=== PATIENT | female | born 1985 | race Caucasian/White ===

== ENCOUNTER 2016-11-09 10:04 | Emergency (ER) | payer MEDICAID ==
[2016-11-09 10:12] VITALS: BP 123/72
--- NOTE | 2016-11-09 10:15 | ER Document Report ---
ED Medical Screen (RME) - General Stated Complaint: FOOT PAIN Mode of Arrival: Ambulatory Information source: Patient Notes: She presents to the emergency department with complaints of right plantar foot pain for one month. She is on her feet all day long. Denies trauma. I have greeted and performed a rapid initial assessment of this patient. A comprehensive ED assessment and evaluation of the patient, analysis of test results and completion of the medical decision making process will be conducted by additional ED providers. TRAVEL OUTSIDE OF THE [place] IN LAST 30 DAYS: No Past Medical History Past Surgical History: Reports: Hx Tonsillectomy - Immunizations Hx Diphtheria, Pertussis, Tetanus Vaccination: No Physical Exam - Vital signs Vitals: Temp Pulse Resp BP Pulse Ox 98.0 F 80 16 123/72 99 11/09/16 10:08 11/09/16 10:08 11/09/16 10:08 11/09/16 10:08 11/09/16 10:08 Course - Vital Signs Vital signs: Temp Pulse Resp BP Pulse Ox 98.0 F 80 16 123/72 99 11/09/16 10:08 11/09/16 10:08 11/09/16 10:08 11/09/16 10:08 11/09/16 10:08
== END 2016-11-09 11:25 | disposition left against medical advice (07) ==
LOC: ER 10:04
DX: M79.671 Pain in right foot (principal)
CPT/HCPCS: 99281

== ENCOUNTER → 2018-05-20 | Outpatient (CLI) | payer MEDICAID ==
--- NOTE | 2018-05-21 09:00 | RADIOLOGY REPORT (SQ) ---
EXAM DESCRIPTION: MRI RT LOWER JOINT WITHOUT COMPLETED DATE/TIME: 05/20/2018 5:25 pm REASON FOR STUDY: PAIN IN RIGHT ANKLE AND JOINTS OF RIGHT M25.571 PAIN IN RIGHT ANKLE AND JOINTS OF RIGHT FOOT COMPARISON: None. TECHNIQUE: Right ankle images acquired and stored on PACS. Multiplanar images include fat sensitive sequences as T1, fluid sensitive sequences as FST2/STIR, cartilage sensitive sequences as FSPD, and g radient echo sequences. LIMITATIONS: None. FINDINGS: BONE MARROW: Subchondral edema midline tibial plafond and along the posteromedial margin o f the talus. EFFUSIONS: Small ankle and subtalar joint effusions. No definite loose bodies are identified. OSSEOUS ARTICULATIONS: Intact. TALAR DOME AND TIBIAL PLAFOND: Intact cartilage. No osteochondral defect. ACHILLES TENDON: Intact without partial or full-thickness tear. No adjacent bursal fluid or edema. TIBIALIS ANTERIOR TENDON: Intact without edema at the 1st MT attachment. TIBIALIS POSTERIOR TENDON: Normal morphology and no edema at the navicular attachment. No tendon ivey th fluid. FLEXOR HALLUCIS LONGUS AND FLEXOR DIGITORUM TENDONS: Normal morphology and no tendon sheath fluid. No edema of the os trigonum. PERONEUS LONGUS AND BREVIS TENDON: Chevron sign in the peroneus brevis tendon. Mildly increased flui d in the tendon sheath. ATFL, CFL, PTFL: The ATFL is torn. The CFL is attenuated but intact. Tibiofibular ligaments intact. DELTOID LIGAMENT: Visualized components intact. TARSAL TUNNEL: No masses. No muscle atrophy. SINUS TARSI: No fluid. No reactive marrow edema or erosions. PLANTAR FASCIA: No signal alteration or tear. ADJACENT SOFT TISSUES: No masses. OTHER: No other significant finding. IMPRESSION: 1. Torn ATFL. 2. Split tear of the peroneus brevis tendon. 3. Mild subchondral edema in the tibial plafond and medial margin of the talus. TECHNICAL DOCUMENTATION: JOB ID: [id number] [employer]- All Rights Reserved Reading location - IP/workstation name: [email or web address]
== END ==
LOC: RAD 16:05
PROVIDERS: ATTEND Orthopaedic Surgery Sports Medicine
DX: M25.571 Pain in right ankle and joints of right foot (principal); S86.311A Strain of muscle(s) and tendon(s) of peroneal muscle group at lower leg level, right leg, initial encounter; X58.XXXA Exposure to other specified factors, initial encounter
CPT/HCPCS: 81025

== ENCOUNTER 2020-02-25 18:03 | Inpatient (IN) | payer MEDICAID ==
[2020-02-25] MEDS ORDERED: RINGERS SOLUTION,LACTATED 1,000 ML IV ONE (18:20)
[2020-02-25] MEDS ORDERED: OXYTOCIN/0.9 % SODIUM CHLORIDE 30 UNIT/500 ML RTUINJ IV PRN (18:20)
[2020-02-25] MEDS ORDERED: RINGERS SOLUTION,LACTATED 300 ML IV ONE (18:20)
[2020-02-25] MEDS ORDERED: MAG HYDROX/AL HYDROX/SIMETH SUSP 30 ML UDCUP PO PRN (18:20)
[2020-02-25] MEDS ORDERED: ZOLPIDEM TARTRATE 5 MG TABLET PO PRN (18:20)
[2020-02-25] MEDS ORDERED: RINGERS SOLUTION,LACTATED 1,000 ML IV PRN ×2 (18:20)
[2020-02-25] MEDS ORDERED: ACETAMINOPHEN 325 MG TABLET PO PRN (18:20)
[2020-02-25] MEDS ORDERED: DINOPROSTONE 10 MG VAGINAL INSERT.SR PV ONE (18:20)
[2020-02-25] MEDS ORDERED: DINOPROSTONE 10 MG VAGINAL INSERT.SR ONE (18:47)
--- NOTE | 2020-02-25 18:59 | Admission Physical ---
Datetime Report Generated by CPN: 02/25/2020 18:58 CURRENT ADMISSION Chief Complaint: Scheduled Induction of Labor Indication for Induction: Not Applicable Admit Impression : Term, Intrauterine ; No Active Labor; Intact Membranes; Induction of Labor Admit Plan: Admit to Unit; Initiate Labor Induction Protocol ALLERGIES Medication Allergies: Yes Medication Allergies: Penicillins (02/25/2020); amoxicillin (02/25/2020); meperidine (02/25/2020) Latex: No Latex Allergies OBSTETRICAL HISTORY EDC: 02/25/2020 00:00 : 2 Para: 1 Term: 1 : 1 SAB: 1 IAB: 1 Ectopic: 0 Livin Cesareans: 0 VBACs: 0 Multiple Births: 0 Gestational Diabetes: No Rh Sensitization: No Incompetent Cervix: No ISELA: No Infertility: No ART Treatment: No Uterine Anomaly: No IUGR: No Hx Previous C/S: No Macrosomia: No Hx Loss/Stillborn: No PIH: No Hx : No Placenta Previa/Abruption: No Depression/PP Depression: No PTL/PROM: No Post Hemorrhage: No Current Procedures: Ultrasound Obstetrical History Comments: G1- 41wks viable baby boy G2- Current SEE RECORDS Alcohol: No Marijuana : No Cocaine: No Other Illicit Drugs: No Cigarettes: Never Smoker. [id number] MEDICAL HISTORY Diabetes: No Blood Transfusion: No Pulmonary Disease (Asthma, TB): No Breast Disease: No Hypertension: No Police Captain Senior Surgery: No Heart Disease: No Hosp/Surgery: Yes Autoimmune Disorder: No Anesthetic Complications: No Kidney Disease: No Abnormal Pap Smear: No Neuro/Epilepsy: No Psychiatric Disorders: No Other Medical Diseases: No Hepatitis/Liver Disease: No Significant Family History: No Varicosities/Phlebitis: No Trauma/Violence : No Thyroid Dysfunction: No INFECTIOUS HISTORY Gonorrhea: No Genital Herpes: No Chlamydia: No Tuberculosis: No Syphilis: No Hepatitis: No HIV/AIDS Exposure: No Rash or Viral Illness: No HPV: No PHYSICAL EXAM General: Normal HEENT: Normal Neurologic: Normal Thyroid: Normal Heart: Normal Lungs: Normal Breast: Normal Back: Normal Abdomen: Normal Genitourinary Exam: Normal Extremities: Normal DTRs: Normal Pelvic Type: Adequate Vital Signs: Reviewed; Within Normal Limits VAGINAL EXAM Dilatation: 1 Effacement: 50 Station: -2 Contraction Comments: no regular MEMBRANES Membranes: Intact FETUS A EGA: 40.0 Monitoring: External US FHR- Baseline: 145 Variability: Moderate 6-25bpm Accelerations: 15X15 Decelerations: None FHR Category: Category I Presentation: Vertex Admit Comment: 35 yo at 40.0 wks EGA for IOL at 41.1 wks EGA for post dates -Admit LDR for scheduled IOL -Ice chips only when in active labor. Start IVFs : LR at 125 cc/hr now -CEFM and [place] -GBS negative, A positive blood type, G/C negative, RI, varicella immune -Cervidil 10mg PV this PM -Hx of one prior , anticipate PLANS FOR LABOR AND DELIVERY Labor and Delivery: None Pain Management: None Feeding Preference: Formula Benefit of Breast Feed Discussed: Yes Circumcision: Yes INFORMED CONSENT Informed Consent Obtained: Vaginal Delivery; Section Delivery; Induction of Labor; Risks, Benefits and Alternatives Discussed Signature: with User ID: [email or web address] : with User ID: [email or web address]
[2020-02-25] MEDS ORDERED: MISOPROSTOL 0.1 MG TABLET ONE ×2 (19:16→19:26)
[2020-02-25] MEDS ORDERED: MISOPROSTOL 0.1 MG TABLET PV ONE (19:18)
[2020-02-25 19:22] LABS: ABSOLUTE EOSINOPHILS # (AUTO) 0.1 10^3/uL (0.0-0.6); ABSOLUTE LYMPHOCYTES (AUTO) 2.4 10^3/uL (0.5-4.7); ABSOLUTE MONOCYTES (AUTO) 0.8 10^3/uL (0.1-1.4); ABSOLUTE NEUT (AUTO) 8.2 10^3/uL (1.7-8.2); BASOPHILS % (AUTO) 0.3 % (0-2); EOSINOPHILS % (AUTO) 0.8 % (0-6); HEMATOCRIT 35.3 % (36.0-47.0); HEMOGLOBIN 12.6 g/dL (12.0-15.5); LYMPHOCYTES % (AUTO) 20.7 % (13-45); MEAN CORPUSCULAR HGB CONC 35.5 g/dL (32.0-36.0); MEAN CORPUSCULAR VOLUME 90 fl (80-97); MONOCYTES % (AUTO) 6.6 % (3-13); PLATELET COUNT 280 10^3/uL (150-450); RED BLOOD COUNT 3.92 10^6/uL (3.72-5.28); RED CELL DISTRIBUTION WIDTH 12.9 % (11.5-14.0); SEGMENTED NEUTROPHILS % (AUTO) 71.6 % (42-78); TOTAL CELLS COUNTED % (AUTO) 100 %; WHITE BLOOD COUNT 11.5 10^3/uL (4.0-10.5)
[2020-02-25 19:22] LABS: URINE AMPHETAMINES SCREEN NEGATIVE; URINE BARBITURATES SCREEN NEGATIVE; URINE BENZODIAZEPINES SCREEN NEGATIVE; URINE COCAINE SCREEN NEGATIVE; URINE MARIJUANA (THC) SCREEN NEGATIVE; URINE METHADONE SCREEN NEGATIVE; URINE PHENCYCLIDINE SCREEN NEGATIVE
[2020-02-26] MEDS ORDERED: OXYTOCIN/0.9 % SODIUM CHLORIDE 30 UNIT/500 ML RTUINJ ONE (00:32)
[2020-02-26] MEDS ORDERED: LIDOCAINE 1% INJ-PF (10 MG/ML) 30 ML SDV ONE (02:56)
[2020-02-26] MEDS ORDERED: MISOPROSTOL 0.2 MG TABLET ONE (02:56)
[2020-02-26] MEDS ORDERED: OXYTOCIN 10 UNIT/ML VIAL ONE (02:56)
[2020-02-26] MEDS ORDERED: PROMETHAZINE HCL INJ 25 MG/1 ML VIAL IV ONE (09:16)
[2020-02-26] MEDS ORDERED: NALBUPHINE HCL INJ 10 MG/1 ML AMPULE ONE (09:16)
[2020-02-26] MEDS ORDERED: NALBUPHINE HCL INJ 10 MG/1 ML AMPULE IV ONE (09:16)
[2020-02-26] MEDS ORDERED: PROMETHAZINE HCL INJ 25 MG/1 ML VIAL ONE (09:16)
[2020-02-26] MEDS ORDERED: BENZOCAINE/MENTHOL AEROSOL SPRAY 56 ML TOP PRN (12:34)
[2020-02-26] MEDS ORDERED: NA PHOS,M-B/NA PHOS,DI-BA (ADULT) 133 ML ENEMA PR PRN (12:34)
[2020-02-26] MEDS ORDERED: PROMETHAZINE HCL 25 MG TABLET PO PRN (12:34)
[2020-02-26] MEDS ORDERED: MEASLES,MUMPS&RUBELLA VACC/PF 0.5 ML VIAL SUBCUT PRN (12:34)
[2020-02-26] MEDS ORDERED: DIPHENHYDRAMINE HCL 25 MG CAPSULE PO PRN (12:34)
[2020-02-26] MEDS ORDERED: PROMETHAZINE HCL INJ 25 MG/1 ML VIAL IV PRN (12:34)
[2020-02-26] MEDS ORDERED: DIBUCAINE 1% OINTMENT 28 GM TP PRN (12:34)
[2020-02-26] MEDS ORDERED: GLYCERIN/WITCH HAZEL LEAF 1 EACH MED..WIPE TP PRN (12:34)
[2020-02-26] MEDS ORDERED: PROMETHAZINE HCL 25 MG SUPP.RECT PR PRN (12:34)
[2020-02-26] MEDS ORDERED: ACETAMINOPHEN 325 MG TABLET PO PRN (12:34)
[2020-02-26] MEDS ORDERED: PSEUDOEPHEDRINE HCL 30 MG TABLET PO PRN (12:34)
[2020-02-26] MEDS ORDERED: DIPH/PERTUSS(ACELL)/TETANUS VAC/PF 0.5 ML SYR (>=10YO) IM PRN (12:34)
[2020-02-26] MEDS ORDERED: MAGNESIUM HYDROXIDE SUSP 30 ML UDCUP PO PRN (12:34)
[2020-02-26] MEDS ORDERED: OXYTOCIN/0.9 % SODIUM CHLORIDE 30 UNIT/500 ML RTUINJ IV PRN (12:34)
--- NOTE | 2020-02-26 13:24 | Warning Signs in Babies ---
VOD Warning Signs Datetime Report Generated by [facility]: 02/26/2020 13:23 VOD#[id number] -Warning Signs in Babies: Needs to be viewed. (02/25/2020 18:12:Nina Begum RN)
--- NOTE | 2020-02-26 14:00 | Delivery Summary ---
Del Sum A-C Datetime Report Generated by CPN: 02/26/2020 14:00 DELIVERY PERSONNEL DELIVERY PERSONNEL: [id number] Delivery Doctor:: Rachel Chavez CNM Nurse Hris Manager Certified:: Rachel Chavez CNM Labor and Delivery Nurse:: Nina Begum RN Nursery Nurse:: Rhonda Perry RN Flight Line Service Attendant/FRONT LINE LEADER: Corinne Dc CNA II MATERNAL INFORMATION Delivery Anesthesia: None Medications After Delivery: Pitocin 30 Units in 500ml NS/D5W Delivery QBL: 150 Maternal Complications: None Provider Comments: pt quickly progressed to c/c/+1 with urge to push, began pushing and able to deliver the head at which point patient stopped pushing. head rotated from DOMENICA to FLORENCIO then patient began pushing again and able to deliver anterior shoulder then quickly delivered the rest of the body. Baby with vigorous respiratory effort and cry with tactile stimulation. Baby placed on maternal abdomen, cord allowed to stop pulsating then clamped x2 and cut by FOB (cord blood collected,3vc noted). Placenta delivered spontaneously intact with central insertion. Fundus firm @ u-2, bleeding stable. Vaginal and perineal inspection revealed no lacerations. Mother and baby remain skin to skin and bonding at this time. LABOR SUMMARY EDC: 02/25/2020 00:00 No. Babies in Womb: 1 Attempted: No Labor Anesthesia: None LABOR INFORMATION Reason for Induction: Post Dates Onset of Labor: 02/26/2020 05:32 Complete Dilatation: 02/26/2020 11:34 Cervical Ripening Agents: Cytotec @ Oxytocin: Induction Group B Beta Strep: NEGATIVE Antibiotics # of Doses: 0 Antibiotics Time of Last Dose: N/A Steroids Given: None Reason Steroids Not Administered: Not Applicable MEMBRANES Membranes Rupture Method: Artificial Rupture of Membranes: 02/26/2020 08:40 Length of Rupture (hr): 3.50 Amniotic Fluid Color: Clear Amniotic Fluid Amount: Moderate Amniotic Fluid Odor: None STAGES OF LABOR Stage 1 hr: 6 Stage 1 min: 2 Stage 2 hr: 0 Stage 2 min: 36 Stage 3 hr: 0 Stage 3 min: 12 Total Time in Labor hr: 6 Total Time in Labor min: 50 VAGINAL DELIVERY Episiotomy: None Laceration #1: None Laceration Extension #1: N/A Laceration Repair: Not Applicable Sponge Count Correct: Yes Sharps Count Correct: N/A CSECTION DELIVERY Primary Indication: N/A Secondary Indication: N/A CSection Incidence: N/A Labor: N/A Elective: N/A CSection Incision: N/A BABY A INFORMATION Delivery Date/Time: 02/26/2020 12:10 Method of Delivery: Vaginal Nurse Controlled Delivery: No Born in Route : No : N/A Forceps: N/A Vacuum Extraction: N/A Shoulder Dystocia : No PRESENTATION/POSITION BABY A Presentation: Cephalic Cephalic Presentation: Vertex Vertex Position: Right Occipital Anterior Breech Presentation: N/A PLACENTA INFORMATION BABY A Placenta Delivery Time : 02/26/2020 12:22 Placenta Method of Delivery: Spontaneous Placenta Status: Delivered SCORES BABY A Heart Rate 1 min: >100 bpm Resp Effort 1 min: Good Cry Reflex Irritability 1 min: Cough or Sneeze or Pulls Away Muscle Tone 1 min: Active Motion Color 1 min: Blue/Pale Resuscitation Effort 1 min: Tactile Stimulation SCORE 1 MIN: 8 Heart Rate 5 min: >100 bpm Resp Effort 5 min: Good Cry Reflex Irritability 5 min: Cough or Sneeze or Pulls Away Muscle Tone 5 min: Active Motion Color 5 min: Body [place], Extremities Blue Resuscitation Effort 5 min: N/A SCORE 5 MIN: 9 Resuscitation Effort 10 min: N/A INFANT INFORMATION BABY A Gestational Age at Delivery: 41.1 Gestational Status: Late Term- 41- 41.6 Weeks Outcome : Liveborn Infant Condition : Stable Sex: Male IDENTIFICATION BABY A Infant Verification Date/Time: 02/26/2020 13:31 ID Band Number: [id number] Mother's Name Verified: Yes Infant RN Verifying : JNiebuhr,RN Additional Verifying Personnel: SCamp,RN WEIGHT/LENGTH BABY A Infant Birthweight (gm): 3690 Weight (lb): 8 Weight (oz): 2 Infant Length (in): 19.50 Infant Length (cm): 49.53 CORD INFORMATION BABY A No. Cord Vessels: 3 Nuchal Cord : N/A Cord Blood Taken: Yes-For Storage (Mom's Blood type +) Infant Suction: None ASSESSMENT BABY A Infant Complications: None Physical Findings at Delivery: Molding of the Head Infant Respirations: Appears Normal Skin to Skin: Yes Skin to Skin Time (min): 30 Business Planner/ALS Called : No Infant Care By: SHAILA Jimenes Transferred To: Remains with Mother BABY B INFORMATION : N/A SIGNATURES Assignment: Chandler Chino MD Signature: with User ID: [email or web address] : with User ID: [email or web address]
[2020-02-26] MEDS ORDERED: IBUPROFEN 800 MG TABLET ONE (14:06)
[2020-02-26] MEDS: IBUPROFEN 800 MG TABLET PO SCH ×2 (14:07→21:35)
[2020-02-26] MEDS: DOCUSATE SODIUM 100 MG CAPSULE PO SCH (17:50)
[2020-02-26] MEDS: FERROUS SULFATE 325 MG TABLET PO SCH (17:50)
[2020-02-26] MEDS ORDERED: ACETAMINOPHEN WITH CODEINE #3 TABLET PO PRN ×2 (19:55)
[2020-02-26] MEDS: FAMOTIDINE 20 MG TABLET PO SCH (21:35)
[2020-02-27] MEDS: IBUPROFEN 800 MG TABLET PO SCH ×3 (05:44→22:46)
[2020-02-27 07:01] LABS: HEMATOCRIT 29.2 % (36.0-47.0); MEAN CORPUSCULAR HEMOGLOBIN 32.8 pg (27.0-33.4); MEAN CORPUSCULAR HGB CONC 35.5 g/dL (32.0-36.0); MEAN CORPUSCULAR VOLUME 92 fl (80-97); PLATELET COUNT 241 10^3/uL (150-450); RED BLOOD COUNT 3.17 10^6/uL (3.72-5.28); RED CELL DISTRIBUTION WIDTH 13.2 % (11.5-14.0); WHITE BLOOD COUNT 15.8 10^3/uL (4.0-10.5)
[2020-02-27 07:03] LABS: HEMOGLOBIN 10.4 g/dL (12.0-15.5)
[2020-02-27] MEDS: SENNOSIDES/DOCUSATE 8.6-50 MG 1 EACH TABLET PO SCH (10:41)
[2020-02-27] MEDS: DOCUSATE SODIUM 100 MG CAPSULE PO SCH ×2 (10:41→17:34)
[2020-02-27] MEDS: FERROUS SULFATE 325 MG TABLET PO SCH ×2 (10:41→17:34)
[2020-02-27] MEDS: FAMOTIDINE 20 MG TABLET PO SCH ×2 (10:41→22:46)
[2020-02-27] MEDS: PRENATAL VITAMIN W DHA CAPSULE PO SCH (10:41)
--- NOTE | 2020-02-27 13:54 | PDOC PROGRESS REPORT ---
Subjective-OB Progress Note for:: 02/27/20 Subjective: Pt doing well, no concerns. She reports light bleeding, reg diet and voiding without difficulty. Physical Exam (OB) Vital Signs: Temp Pulse Resp BP Pulse Ox 97.9 F 78 18 100/63 99 02/27/20 07:21 02/27/20 07:21 02/27/20 07:21 02/27/20 07:21 02/27/20 07:21 Intake & Output 02/26/20 02/27/20 02/28/20 06:59 06:59 06:59 Weight 110.5 kg - PIH/Pre-Eclampsia Clonus: Negative Headache: Absent Epigastric Pain: No Visual Changes: No - Lochia Lochia Amount: Small 10-25 ml Lochia Color: Rubra/Red - Abdomen Description: Soft, Round Hernia Present: No Fundal Description: Firm, Midline Fundal Height: u/u - u/2 Objective-Diagnostic Laboratory: 02/27/20 06:30 02/27/20 06:30 WBC 15.8 H RBC 3.17 L Hgb 10.4 L D Hct 29.2 L MCV 92 MCH 32.8 MCHC 35.5 RDW 13.2 Plt Count 241 Assessment and Plan(PN) - Assessment and Plan (1) Delivery normal Is this a current diagnosis for this admission?: Yes (2) Encounter for induction of labor Is this a current diagnosis for this admission?: Yes (3) Gestational diabetes mellitus (GDM) affecting second Is this a current diagnosis for this admission?: Yes - Time Spent with Patient Time with patient: Less than 15 minutes Medications reviewed and adjusted accordingly: Yes - Disposition Anticipated Discharge: Home Within: within 24 hours
[2020-02-28] MEDS: IBUPROFEN 800 MG TABLET PO SCH (05:36)
[2020-02-28 07:26] VITALS: BP 114/64
--- NOTE | 2020-02-28 07:55 | PDOC DISCHARGE SUMMARY ---
Impression - Admit/DC Date/PCP Admission Date/Primary Care Provider: 02/25/20 18:03 DEEJAY DEL TORO MD Discharge Date: 02/28/20 - Discharge Diagnosis (1) Delivery normal Is this a current diagnosis for this admission?: Yes (2) Encounter for induction of labor Is this a current diagnosis for this admission?: Yes (3) Gestational diabetes mellitus (GDM) affecting second Is this a current diagnosis for this admission?: Yes - Additional Information Resuscitation Status: Full Code Discharge Diet: Regular Discharge Activity: Balance Activity w/Rest, Pelvic Rest Referrals: DEEJAY DEL TORO MD [Primary Care Provider] - Prescriptions: Ibuprofen [Motrin 800 mg Tablet] 800 mg PO Q8HP PRN #60 tablet PRN Reason: Home Medications: Vits96/Iron Fum/Folic [ Tablet] 1 each PO DAILY 02/25/20 Ibuprofen [Motrin 800 mg Tablet] 800 mg PO Q8HP PRN #60 tablet 02/28/20 HPI Gestational Age: 41.1 Reason(s) for Admission: Induction of Labor, Gestional Diabetes Procedures: NST Intrapartum Procedure(s): Spontaneous Vaginal Delivery Results Laboratory Results: WBC 15.8 10^3/uL (4.0-10.5) H 02/27/20 06:30 RBC 3.17 10^6/uL (3.72-5.28) L 02/27/20 06:30 Hgb 10.4 g/dL (12.0-15.5) L D 02/27/20 06:30 Hct 29.2 % (36.0-47.0) L 02/27/20 06:30 MCV 92 fl (80-97) 02/27/20 06:30 MCH 32.8 pg (27.0-33.4) 02/27/20 06:30 MCHC 35.5 g/dL (32.0-36.0) 02/27/20 06:30 RDW 13.2 % (11.5-14.0) 02/27/20 06:30 Plt Count 241 10^3/uL (150-450) 02/27/20 06:30 Lymph % (Auto) 20.7 % (13-45) 02/25/20 19:05 [place] % (Auto) 6.6 % (3-13) 02/25/20 19:05 Eos % (Auto) 0.8 % (0-6) 02/25/20 19:05 Baso % (Auto) 0.3 % (0-2) 02/25/20 19:05 Absolute Neuts (auto) 8.2 10^3/uL (1.7-8.2) 02/25/20 19:05 Absolute Lymphs (auto) 2.4 10^3/uL (0.5-4.7) 02/25/20 19:05 Absolute Monos (auto) 0.8 10^3/uL (0.1-1.4) 02/25/20 19:05 Absolute Eos (auto) 0.1 10^3/uL (0.0-0.6) 02/25/20 19:05 Absolute Basos (auto) 0.0 10^3/uL (0.0-0.2) 02/25/20 19:05 Seg Neutrophils % 71.6 % (42-78) 02/25/20 19:05 Urine Opiates Screen NEGATIVE 02/25/20 18:12 Urine Methadone Screen NEGATIVE 02/25/20 18:12 Ur Barbiturates Screen NEGATIVE 02/25/20 18:12 Ur Phencyclidine Scrn NEGATIVE 02/25/20 18:12 Ur Amphetamines Screen NEGATIVE 02/25/20 18:12 U Benzodiazepines Scrn NEGATIVE 02/25/20 18:12 Urine Cocaine Screen NEGATIVE 02/25/20 18:12 U Marijuana (THC) Screen NEGATIVE 02/25/20 18:12 RPR NONREACTIVE (NONREACTIVE) 02/25/20 19:05 Blood Type A POSITIVE 02/25/20 19:05 Antibody Screen NEGATIVE 02/25/20 19:05 Plan Plan of Treatment: f/u at [facility] for PPCK 4 wks Time Spent: Less than 30 Minutes
[2020-02-28] MEDS: FAMOTIDINE 20 MG TABLET PO SCH (10:23)
[2020-02-28] MEDS: SENNOSIDES/DOCUSATE 8.6-50 MG 1 EACH TABLET PO SCH (10:23)
[2020-02-28] MEDS: FERROUS SULFATE 325 MG TABLET PO SCH (10:23)
[2020-02-28] MEDS: PRENATAL VITAMIN W DHA CAPSULE PO SCH (10:23)
[2020-02-28] MEDS: DOCUSATE SODIUM 100 MG CAPSULE PO SCH (10:23)
== END 2020-02-28 13:30 | disposition home or self-care (01) | DRG 807 ==
LOC: LR 18:03 → 2S 02-26 16:54
PROVIDERS: ADMIT Obstetrics & Gynecology; ATTEND Obstetrics & Gynecology Gynecology
PROC: 10E0XZZ Delivery of Products of Conception, External Approach (ICD-10-PCS; principal; 2020-02-26)
DX: O48.0 Post-term pregnancy (principal); Z37.0 Single live birth; O24.420 Gestational diabetes mellitus in childbirth, diet controlled; Z3A.40 40 weeks gestation of pregnancy; Z14.1 Cystic fibrosis carrier
CPT/HCPCS: 36415; 80307; 85025; 85027; 86592; 86850; 86900; 86901; 94760; J2300; J2550; J2590; J3490